=== PATIENT | female | born 1940 | race Caucasian/White ===

== ENCOUNTER 2016-05-03 13:14 | Observation (INO) | payer MEDICARE ==
[2016-05-03] MEDS ORDERED: Sodium Chloride 0.9% 1000 ML 1,000 ML IV SCH ×2 (13:30→16:21)
[2016-05-03] MEDS ORDERED: Sodium Chloride 0.9% 1000 ML 1,000 ML ONE (13:31)
[2016-05-03 13:53] LABS: BASOPHIL % 0.1 % (0.0-0.4); Eosinophil % 0.5 % (0.00-5.0); Granulocytes % 79.4 % (36.0-66.0); Lymphocytes % 9.6 % (24.0-44.0); Mean Cell Volume 95.7 fl (78-100); Mean Corpuscular Hemoglobin 31.9 pg (26-32); Mean Platelet Volume 11.4 fl (6-9.5); Monocytes % 10.4 % (0.0-12.0); Platelet Count 285 K/mm3 (150-450); Red Blood Count 3.76 M/mm3 (4.1-5.4); Red Cell Distribution Width 13.2 % (11.5-14.0); White Blood Count 9.2 K/mm3 (4.0-10.5)
[2016-05-03 14:06] LABS: ALBUMIN 3.4 g/dL (3.4-5.0); ANION GAP 15.7 MEQ/L (5-15); BILIRUBIN,TOTAL 0.4 mg/dL (0.2-1.0); Carbon Dioxide 22.3 mEq/L (21-32); Potassium 4.8 mEq/L (3.5-5.1); Total Protein 7.4 gm/dL (6.4-8.2)
--- NOTE | 2016-05-03 14:06 | ERPHSYRPT ---
- History of Present Illness Time Seen by Provider: 05/03/16 13:18 Source: patient, family (daughter) Patient Subjective Stated Complaint: SYNCOPAL EPISODE TODAY Triage Nursing Assessment: STATES GOT HOT AT HOME AND STARTED TO GO TO THE BATHROOM AND 'WOKE UP ON THE FLOOR'. PT STATES SHE IS ON LEVAQUIN FOR A DX OF BRONCHITIS. UP FROM 250MG OF LEVAQUIJN TO 500MG. SKIN WARM AND DRY. DENIES INJURY FROM FALL. PUPILS ALEENA. ELECTRICAL PRODUCTS ENGINEER EQUAL. DENIES SYNCOPAL SYMPTOMS AT THIS TIME. HAD NOT ATE BREAKAST PRIOR TO SYNCOPAL EPISODE BUT HAS ATE BREAKFAST SINCE. RT INDEX FINGER SWOLLEN AND WARM TO TOUCH--PT STATES SHE HAS GOUT AND HAS RECENT FLARE-UP. Physician History: CC: passed out Hx: 76 y/o patient of Dr Yuniel Schneider and Dr Yair Cohen (cardiology [facility]). She has been sick for the past two weeks with cough, sinus drng. Initially some fever. Started levaquin 250 QOD Thursday and increased to 500mg daily . She continues to have some cough. Also using an inhaler. She has not been eating or drinking much. This AM she felt hungry. She went to go to [place]. She felt warm and clammy. While sitting on toilet she must have passed out as she awoke on the floor. No apparent injury. No VALADEZ, neck pain, back pain, or extremity injury. No chest pain , palpitations, V/D, abd pain. No N/T/W. She feels fine now. She has had hx of gout. She has right index finger swelling and redness and some pain. She reports prior abnl EKG in the past but unsure what abnormality. ILL: Gout, prior kidney transplant 8 years ago [facility], HTN Surg: Back surgery Social: Nonsmoker Timing/Duration: today Allergies/Adverse Reactions: No Known Drug Allergies Allergy (Unverified 05/03/16 13:32) Home Medications: Allopurinol 100 mg [Zyloprim 100 mg] 200 mg PO BID 05/03/16 [History] Amlodipine Besylate 5 mg [Norvasc 5 mg] 5 mg PO DAILY 05/03/16 [History] Aspirin 81 mg PO DAILY 05/03/16 [History] Atorvastatin Calcium [Lipitor] 80 mg PO HS 05/03/16 [History] Benzonatate 200 mg PO TID 05/03/16 [History] Ferrous Sulfate [Iron] 325 mg PO DAILY 05/03/16 [History] Hydrochlorothiazide 25 mg [hydroDIURIL 25 MG] 25 mg PO DAILY 05/03/16 [ History] Lisinopril 80 mg PO DAILY 05/03/16 [History] Metoprolol Succinate 50 mg [Toprol Xl 50 MG] 150 mg PO BID 05/03/16 [ History] Mycophenolate Mofetil 250 mg PO BID 05/03/16 [History] Omeprazole 20 MG [Prilosec 20 mg] 20 mg PO DAILY 05/03/16 [History] Tacrolimus [Prograf] 0.5 mg PO BID 05/03/16 [History] Valacyclovir HCl [Valacyclovir] 500 mg PO DAILY 05/03/16 [History] Hx Tetanus, Diphtheria Vaccination/Date Given: Yes Hx Influenza Vaccination/Date Given: No Hx Pneumococcal Vaccination/Date Given: Yes Immunizations Up to Date: Yes - Review of Systems Constitutional: Fatigue, Malaise, Weakness, No Fever, No Chills Eyes: No Symptoms, No Vision Changes Ears, Nose, & Throat: No Symptoms Respiratory: Cough, No Dyspnea Cardiac: Syncope, No Chest Pain, No Palpitations Abdominal/Gastrointestinal: No Abdominal Pain, No Nausea, No Vomiting, No Diarrhea Genitourinary Symptoms: No Dysuria Musculoskeletal: Fall, No Back Pain, No Neck Pain Skin: No Rash Neurological: No Dizziness, No Focal Weakness, No Headache, No Parasthesia, No Seizure All Other Systems: Reviewed and Negative - Past Medical History Pertinent Past Medical History: Yes Cardiac History: Hypertension Respiratory History: Other Other Medical History: ABNORMAL EKG BUT UNSURE OF DX - Past Surgical History Past Surgical History: Yes Female Surgical History: Hysterectomy Other Surgical History: BACK SURGERY. SQUAMOUS CELL REMOVAL. KIDNEY TRANPLANT - Social History Smoking Status: Never smoker Exposure to second hand smoke: No Drug Use: none Patient Lives Alone: No - Nursing Vital Signs Nursing Vital Signs: Initial Vital Signs Temperature 97.4 F Temperature Source Oral Pulse Rate 78 Respiratory Rate 18 Blood Pressure [] 113/67 Pain Intensity 0 - Physical Exam General Appearance: alert Eye Exam: PERRL/EOMI Ears, Nose, Throat Exam: normal ENT inspection, moist mucous membranes Neck Exam: normal inspection, non-tender, supple Respiratory Exam: normal breath sounds, lungs clear, No respiratory distress Cardiovascular Exam: regular rate/rhythm, No murmur Gastrointestinal/Abdomen Exam: soft, No tenderness, No distention, No mass, No guarding Back Exam: normal inspection, No vertebral tenderness Extremity Exam: normal inspection, normal range of motion, other (some redness swelling and tenderness right index finger) Neurologic Exam: alert, oriented x 3, cooperative, sensation nml, No motor deficits Skin Exam: warm, dry, No rash SpO2 Interpretation: normal SpO2: 96 Oxygen Delivery: Room Air - Course Nursing assessment & vital signs reviewed: Yes EKG Interpreted by Me: RATE (72), Sinus Rhythm, NORMAL AXIS, NORMAL INTERVALS ( QTc 435), 1st degree AV Block, Q-wave (septal), Non-specific ST Changes - Radiology Exams right hand X-ray Interpretation: Reviewed by me (swelling index finger) cxr X-ray Interpretation: Reviewed by me (RLL pneumonia) Ordered Tests: Active Orders 24 hr Category Date Time Status Senior Auditor STAT Care 05/03/16 13:20 Active Cath for Specimen-Straight STAT Care 05/03/16 13:19 Active EKG-ER Only STAT Care 05/03/16 13:19 Active IV Insertion STAT Care 05/03/16 13:19 Active CHEST 1 VIEW (PORTABLE) Stat Exams 05/03/16 13:19 Taken HAND (MINIMUM 3 VIEWS) Stat Exams 05/03/16 13:39 Taken BLOOD CULTURE Stat Lab 05/03/16 13:40 Received CBC W DIFF Stat Lab 05/03/16 13:35 Completed CMP Stat Lab 05/03/16 13:35 Completed CULTURE,URINE Stat Lab 05/03/16 14:15 Received Lactic Acid Urgent Lab 05/03/16 13:19 Completed MAGNESIUM Stat Lab 05/03/16 13:35 Completed TROPONIN Stat Lab 05/03/16 13:35 Completed UA Stat Lab 05/03/16 14:15 Completed Uric Acid Stat Lab 05/03/16 13:35 Completed Medication Summary Generic Name Dose Route Start Last Admin Trade Name Freq PRN Reason Stop Dose Admin Sodium Chloride 1,000 mls @ 100 mls/hr 05/03/16 13:30 05/03/16 13:34 Sodium Chloride 0.9% 1000 Ml IV 06/02/16 13:29 100 mls/hr .Q10H IVONE Administration Discontinued Medications Generic Name Dose Route Start Last Admin Trade Name Hetal PRN Reason Stop Dose Admin Sodium Chloride Confirm 05/03/16 13:31 Sodium Chloride 0.9% 1000 Ml Administered 05/03/16 13:32 Dose 1,000 mls @ ud .ROUTE .STK-MED ONE Lab/Rad Data: Laboratory Result Diagrams 05/03/16 13:35 05/03/16 13:35 Laboratory Results 05/03/16 05/03/16 05/03/16 Range/Units 14:15 13:35 13:35 WBC (4.0-10.5) K/mm3 RBC (4.1-5.4) M/mm3 Hgb (12.0-16.0) gm/dl Hct (35-47) % MCV (78-100) fl MCH (26-32) pg MCHC (32-36) g/dl RDW (11.5-14.0) % Plt Count (150-450) K/mm3 MPV (6-9.5) fl Gran % (36.0-66.0) % Lymphocytes % (24.0-44.0) % Monocytes % (0.0-12.0) % Eosinophils % (0.00-5.0) % Basophils % (0.0-0.4) % Basophils # (0-0.4) Sodium 128 L (136-145) mEq/L Potassium 4.8 (3.5-5.1) mEq/L Chloride 95 L (98-107) mEq/L Carbon Dioxide 22.3 (21-32) mEq/L Anion Gap 15.7 H (5-15) MEQ/L BUN 34 H (9-20) mg/dL Creatinine 1.62 H (0.55-1.30) mg/dl Estimated GFR 33 ML/MIN Glucose 142 H (70-110) MG/DL Lactic Acid (0.4-2.0) Uric Acid 3.5 (2.6-6.0) mg/dL Calcium 9.9 (8.5-10.1) mg/dL Magnesium 1.2 L (1.8-2.4) mg/dL Total Bilirubin 0.4 (0.2-1.0) mg/dL AST 22 (15-37) U/L ALT 11 L (12-78) U/L Alkaline Phosphatase 132 H (46-116) U/L Troponin I < 0.017 (0.000-0.056) ng/ml Serum Total Protein 7.4 (6.4-8.2) gm/dL Albumin 3.4 (3.4-5.0) g/dL Ur Collection Type VOID Urine Color YELLOW (YELLOW) Urine Appearance CLEAR (CLEAR) Urine pH 5.0 (5-6) Ur Specific Sylvester 1.010 (1.005-1.025) Urine Protein NEGATIVE (Negative) Urine Glucose (UA) NEGATIVE (NEGATIVE) mg/dL Urine Ketones NEGATIVE (NEGATIVE) Urine Nitrite NEGATIVE (NEGATIVE) Urine Bilirubin NEGATIVE (NEGATIVE) Urine Urobilinogen 0.2 (0-1) mg/dL Urine WBC (Auto) NEGATIVE (NEGATIVE) Urine RBC (Auto) NEGATIVE (0-5) Stephen/ul Specimen Received 05/03/16 1415 05/03/16 05/03/16 Range/Units 13:35 13:19 WBC 9.2 (4.0-10.5) K/mm3 RBC 3.76 L (4.1-5.4) M/mm3 Hgb 12.0 (12.0-16.0) gm/dl Hct 36.0 (35-47) % MCV 95.7 (78-100) fl MCH 31.9 (26-32) pg MCHC 33.3 (32-36) g/dl RDW 13.2 (11.5-14.0) % Plt Count 285 (150-450) K/mm3 MPV 11.4 H (6-9.5) fl Gran % 79.4 H (36.0-66.0) % Lymphocytes % 9.6 L (24.0-44.0) % Monocytes % 10.4 (0.0-12.0) % Eosinophils % 0.5 (0.00-5.0) % Basophils % 0.1 (0.0-0.4) % Basophils # 0.01 (0-0.4) Sodium (136-145) mEq/L Potassium (3.5-5.1) mEq/L Chloride (98-107) mEq/L Carbon Dioxide (21-32) mEq/L Anion Gap (5-15) MEQ/L BUN (9-20) mg/dL Creatinine (0.55-1.30) mg/dl Estimated GFR ML/MIN Glucose (70-110) MG/DL Lactic Acid 1.0 (0.4-2.0) Uric Acid (2.6-6.0) mg/dL Calcium (8.5-10.1) mg/dL Magnesium (1.8-2.4) mg/dL Total Bilirubin (0.2-1.0) mg/dL AST (15-37) U/L ALT (12-78) U/L Alkaline Phosphatase (46-116) U/L Troponin I (0.000-0.056) ng/ml Serum Total Protein (6.4-8.2) gm/dL Albumin (3.4-5.0) g/dL Ur Collection Type Urine Color (YELLOW) Urine Appearance (CLEAR) Urine pH (5-6) Ur Specific Sylvester (1.005-1.025) Urine Protein (Negative) Urine Glucose (UA) (NEGATIVE) mg/dL Urine Ketones (NEGATIVE) Urine Nitrite (NEGATIVE) Urine Bilirubin (NEGATIVE) Urine Urobilinogen (0-1) mg/dL Urine WBC (Auto) (NEGATIVE) Urine RBC (Auto) (0-5) Stephen/ul Specimen Received - Progress Progress Note: 05/03/16 15:31 The patient has elevated creat which usually is less than 1. She has some RLL infiltrates. Called Dr Rae ([phone]) thru one call and also spoke to hospitalist. They advise transfer to [facility] but no beds available possibly until tomorrow. They advised Vancomycin 1 gram IV, IV bolus then 75 ml/hr, continue levaquin, serial troponin, tele, hold prgraf, and continue cellcept. Since no beds at [facility] spoke to Dr Boggs (oc) and will place in tele obs here until [facility] bed available. Discussed with : Ambrose Will see patient in: hospital (observation) Counseled pt/family regarding: lab results, diagnosis, need for follow-up, rad results - Departure Time of Disposition: 15:34 Departure Disposition: Observation Clinical Impression: Syncope, Hx of kidney transplant, Azotemia, Hyponatremia, Abnormal EKG Condition: Fair Critical Care Time: No
[2016-05-03 14:11] LABS: MAGNESIUM 1.2 mg/dL (1.8-2.4)
[2016-05-03 14:13] LABS: TROPONIN < 0.017 ng/ml (0.000-0.056)
[2016-05-03 14:20] LABS: COMPLETE URINE MICROSCOPIC? NO; Collection Type VOID
[2016-05-03] MEDS ORDERED: Vancomycin 1GM/ Ns 250ML*** 250 ML IV ONE ×2 (15:30→15:49)
[2016-05-03] MEDS ORDERED: TYLENOL 325 MG PO PRN (16:21)
[2016-05-03] MEDS ORDERED: PROVENTIL 2.5 MG/3 ML NEB IH PRN (16:21)
[2016-05-03 20:11] VITALS: BP 145/62
[2016-05-03 20:21] VITALS: PULSE 85; O2SAT 95
[2016-05-03] MEDS ORDERED: Lopressor 50 MG ONE (21:37)
[2016-05-03] MEDS ORDERED: ZYLOPRIM 100 MG ONE (21:38)
[2016-05-03] MEDS ORDERED: ZOCOR 20MG ONE (21:38)
[2016-05-03] MEDS ORDERED: Tessalon Perles 100 MG PO ONE (21:38)
--- NOTE | 2016-05-03 21:57 | XRAY ---
Indication: Syncope. Comparison: None Portable chest demonstrates subtle right infrahilar infiltrate/atelectasis and bilateral calcified granulomas. Remaining heart, lungs, and bony thorax unremarkable.
--- NOTE | 2016-05-03 21:58 | XRAY ---
Indication: Second digit swelling. Comparison: None 3 views of the right hand demonstrates minimal/mild degenerative changes of all the IP joints, mild second finger soft tissue swelling, and distal forearm vascular calcifications. No other bony, articular, or soft tissue abnormalities.
[2016-05-03] MEDS ORDERED: Lopressor 50 MG PO SCH (22:00)
[2016-05-03] MEDS ORDERED: ZOCOR 20MG PO SCH (22:00)
[2016-05-03] MEDS ORDERED: Tessalon Perles 100 MG PO SCH (22:00)
[2016-05-03] MEDS ORDERED: ZYLOPRIM 100 MG PO SCH (22:00)
[2016-05-03] MEDS ORDERED: PROVENTIL COMMON CANISTER IH SCH (22:00)
[2016-05-03] MEDS ORDERED: NON-FORMULARY ITEM PO SCH (22:00)
--- NOTE | 2016-05-06 12:43 | SSS ---
DISCHARGE DIAGNOSES: 1) RIGHT LOWER LOBE PNEUMONIA. 2) SYNCOPE. 3) HISTORY OF KIDNEY TRANSPLANT WITH ACUTE RENAL FAILURE. HOSPITAL COURSE: This patient was admitted from the emergency department late in the afternoon on 05/03/2016. The emergency room doctor had contacted and they had requested that she be transferred there. However, they did not have any beds available at at that time. A bed became available in the early evening at and so she was transferred there by ACLS to see her specialist, her stock hanger that he spoke with was Dr. Rae. She had some syncope at home and was found to have a right lower lobe infiltrate. She had been on Levaquin at home. She had already taken that the day she was seen and the doctor at had recommended that Dr. Moody give her Vancomycin 1 gm IV which he did but also advised to hold her Prograf and continue CellCept which we did. They advised telemetry with serial troponins which was done while she was here. They also advised that she get fluids at 75 ml/hour and be transferred to as soon as a bed was available so she was transferred for specialty care given her history of renal transplant with acute renal failure. The patient was transferred on 05/03/2016. She was transferred before I saw her. Again, she was seen by the emergency room doctor here and he had wanted her to transfer directly from the emergency room but again this was not possible because at that time at they had no beds available. DISPOSITION: Transfer to [facility] for specialty care with her freezer tunnel operator and stock hanger given her complicated past medical history with the renal transplant.
== END 2016-05-03 22:55 ==
LOC: ED 13:14 → MED SURG 16:06
PROVIDERS: ADMIT Internal Medicine; ATTEND Internal Medicine
DX: J18.9 Pneumonia, unspecified organism (principal); R55 Syncope and collapse; Z94.0 Kidney transplant status; N17.9 Acute kidney failure, unspecified; E87.1 Hypo-osmolality and hyponatremia; I10 Essential (primary) hypertension; Z79.899 Other long term (current) drug therapy
CPT/HCPCS: 36000; 36415; 71010; 73130; 80053; 81002; 83605; 83735; 84484; 84550; 85025; 87040; 87086; 93005; 93041; 93268; 94640; 94760; 96360; 96361; 96365; 96366; 99285; G0378; J3370; P9612

== ENCOUNTER 2016-07-13 19:38 | Emergency (ER) | payer MEDICARE ==
--- NOTE | 2016-07-13 20:10 | ERPHSYRPT ---
- History of Present Illness Time Seen by Provider: 07/13/16 20:03 Source: patient, family Exam Limitations: no limitations Physician History: This is a 76-year-old white female with history of high blood pressure who has a abnormal EKG in the past of unknown type who has had a kidney transplant in 2007. She states she had been on vacation she came home she states that she was could not remember any other coats for her cars or her house. Her states that she had problems getting her words out. She did not have any problems moving speaking. She is now speaking normally and is able to move and has no obvious deficits. Past medical history includes high blood pressure, abnormal EKG, kidney transplant. 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 because of glomerulonephritis Social history patient denies tobacco use she states she occasionally uses alcohol but none today she denies illicit drug use Timing/Duration: today (1 hour ago) Severity: mild Modifying Factors: Improves With: nothing Associated Symptoms: No nausea, No vomiting, No abdominal pain Allergies/Adverse Reactions: lymphocyte immune globulin,rabbit [From Thymoglobulin] Allergy (Verified 17:13) Home Medications: Albuterol Sulfate [Proair Hfa] 2 puff IH QID 05/03/16 [History] Allopurinol 100 mg [Zyloprim 100 mg] 200 mg PO BID 05/03/16 [History] Aspirin 81 mg PO DAILY 05/03/16 [History] Atorvastatin Calcium [Lipitor] 80 mg PO HS 05/03/16 [History] Ferrous Sulfate [Iron] 325 mg PO DAILY 05/03/16 [History] Lisinopril 80 mg PO DAILY 05/03/16 [History] Metoprolol Tartrate [Lopressor] 150 mg PO BID 05/03/16 [History] Mycophenolate Mofetil 250 mg PO BID 05/03/16 [History] Omeprazole 20 MG [Prilosec 20 mg] 20 mg PO DAILY 05/03/16 [History] Tacrolimus [Prograf] 0.5 mg PO BID 05/03/16 [History] Valacyclovir HCl [Valacyclovir] 500 mg PO DAILY 05/03/16 [History] Hx Tetanus, Diphtheria Vaccination/Date Given: Yes Hx Influenza Vaccination/Date Given: No Hx Pneumococcal Vaccination/Date Given: Yes - Review of Systems Constitutional: No Fever, No Chills Eyes: No Symptoms, No Discharge, No Eye Pain, No Eye Redness, No Itchy, No Photophobia, No Tearing, No Vision Changes, No Double Vision, No Foreign Body Sensation Ears, Nose, & Throat: No Symptoms, No Ear Pain, No Ear Discharge, No Hearing Changes, No Tinnitus, No Nose Pain, No Nose Congestion, No Nose Discharge, No Sinus Drainage, No Epistaxis, No Mouth Pain, No Mouth Swelling, No Loose Teeth, No Throat Pain, No Throat Swelling, No Hoarse, No Painful Swallowing, No Snoring , No Stridor Respiratory: No Cough, No Dyspnea Cardiac: No Chest Pain, No Edema, No Syncope Abdominal/Gastrointestinal: No Abdominal Pain, No Nausea, No Vomiting, No Diarrhea Genitourinary Symptoms: No Dysuria Musculoskeletal: No Back Pain, No Neck Pain Skin: No Rash Neurological: Speech Changes, Other (patient with a brief period of unable to remember the codes for her car and house, also old trouble getting her words out for several minutes one hour prior to arrival), No Dizziness, No Focal Weakness, No Gait Changes, No Headache, No Irritability, No Lethargy, No Paralysis, No Parasthesia, No Seizure, No Sensory Changes, No Tics, No Tremors, No Vertigo Psychological: No Symptoms Endocrine: No Symptoms All Other Systems: Reviewed and Negative - Past Medical History Pertinent Past Medical History: Yes Neurological History: No Pertinent History ENT History: Cataracts Cardiac History: High Cholesterol, Hypertension, Other Respiratory History: Other Endocrine Medical History: No Pertinent History Musculoskeletal History: Arthritis, Other GI Medical History: GERD History: Other Psycho-Social History: No Pertinent History Female Reproductive Disorders: Abnormal Uterine Bleeding Other Medical History: ABNORMAL EKG BUT UNSURE OF DX, gout - Past Surgical History Past Surgical History: Yes Neuro Surgical History: No Pertinent History Cardiac: No Pertinent History Respiratory: No Pertinent History Gastrointestinal: No Pertinent History Genitourinary: Kidney Transplant Musculoskeletal: Orthopedic Surgery Female Surgical History: Hysterectomy Other Surgical History: BACK SURGERY. SQUAMOUS CELL REMOVAL (2) - Social History Smoking Status: Former smoker Exposure to second hand smoke: No Drug Use: none Patient Lives Alone: No - Nursing Vital Signs Nursing Vital Signs: Initial Vital Signs Temperature 98.3 F Temperature Source Oral Pulse Rate 80 Respiratory Rate 18 Blood Pressure [] 198/90 Pain Intensity 0 - Physical Exam General Appearance: no apparent distress, alert Eye Exam: PERRL/EOMI, eyes nml inspection Ears, Nose, Throat Exam: normal ENT inspection, TMs normal, pharynx normal, moist mucous membranes Neck Exam: normal inspection, non-tender, supple, full range of motion Respiratory Exam: normal breath sounds, lungs clear, No respiratory distress Cardiovascular Exam: regular rate/rhythm, normal heart sounds, normal peripheral pulses Gastrointestinal/Abdomen Exam: soft, normal bowel sounds, No tenderness, No mass Back Exam: normal inspection, normal range of motion, No CVA tenderness, No vertebral tenderness Extremity Exam: normal inspection, normal range of motion, pelvis stable Neurologic Exam: alert, oriented x 3, cooperative, normal mood/affect, nml cerebellar function, nml station & gait, sensation nml, other (patient alert, oriented 3, speech is normal, no facial droop, full range of motion to all extremities, finger to nose within normal limits bilaterally, no pronator drift , e commerce architect equal and symmetrical 5 over5, no tongue deviation, GCS is 15, DTRs 2 over 4, sensation intact to all extremities), No motor deficits Skin Exam: normal color, warm, dry, No rash SpO2 Interpretation: normal (98%) SpO2: 98 Oxygen Delivery: Room Air - Course Nursing assessment & vital signs reviewed: Yes EKG Interpreted by Me: RATE (79 bpm), Sinus Rhythm, Left Og[place]by Deviation, Other ( EKG sinus rhythm 72 beats per minute left axis deviation no acute ST or T wave changes a May 03, 2016) - Radiology Exams Chest X-ray Interpretation: Interpreted by me, Negative, No Pneumothorax - CT Exams Head CT Interpretation: Discussed w/radiologist (petechial hyperdensities in left basilar ganglia 12 mm focus pethecial bleed) Ordered Tests: Active Orders 24 hr Category Date Time Status Accucheck STAT Care 07/13/16 20:03 Active Sliver Lap Machine Tender STAT Care 07/13/16 20:03 Active EKG-ER Only STAT Care 07/13/16 20:03 Active IV Insertion STAT Care 07/13/16 20:03 Active CHEST 1 VIEW (PORTABLE) Stat Exams 07/13/16 20:04 Taken HEAD WITHOUT CONTRAST [CT] Stat Exams 07/13/16 20:03 Taken CBC W DIFF Stat Lab 07/13/16 20:12 Completed CMP Stat Lab 07/13/16 20:12 Completed PROTIME WITH INR Stat Lab 07/13/16 20:12 Completed PTT Stat Lab 07/13/16 20:12 Completed TROPONIN Stat Lab 07/13/16 20:12 Completed UA W/ MICROSCOPIC Stat Lab 07/13/16 20:13 Completed Medication Summary Discontinued Medications Generic Name Dose Route Start Last Admin Trade Name Louisq PRN Reason Stop Dose Admin Labetalol HCl 10 mg 07/13/16 21:40 Trandate 20 Mg/5 Ml Syringe IV 07/13/16 21:41 STAT ONE Lab/Rad Data: Laboratory Result Diagrams 07/13/16 20:12 07/13/16 20:12 Laboratory Results 07/13/16 07/13/16 07/13/16 Range/Units 20:13 20:12 20:12 WBC (4.0-10.5) K/mm3 RBC (4.1-5.4) M/mm3 Hgb (12.0-16.0) gm/dl Hct (35-47) % MCV (78-100) fl MCH (26-32) pg MCHC (32-36) g/dl RDW (11.5-14.0) % Plt Count (150-450) K/mm3 MPV (6-9.5) fl Gran % (36.0-66.0) % Lymphocytes % (24.0-44.0) % Monocytes % (0.0-12.0) % Eosinophils % (0.00-5.0) % Basophils % (0.0-0.4) % Basophils # (0-0.4) INR 0.89 (0.8-3.0) APTT 28.2 (25.3-37.0) SECONDS Sodium (136-145) mEq/L Potassium (3.5-5.1) mEq/L Chloride (98-107) mEq/L Carbon Dioxide (21-32) mEq/L Anion Gap (5-15) MEQ/L BUN (9-20) mg/dL Creatinine (0.55-1.30) mg/dl Estimated GFR ML/MIN Glucose (70-110) MG/DL Calcium (8.5-10.1) mg/dL Total Bilirubin (0.2-1.0) mg/dL AST (15-37) U/L ALT (12-78) U/L Alkaline Phosphatase (46-116) U/L Troponin I < 0.017 (0.000-0.056) ng/ml Serum Total Protein (6.4-8.2) gm/dL Albumin (3.4-5.0) g/dL Ur Collection Type CLEAN CATCH Urine Color YELLOW (YELLOW) Urine Appearance CLEAR (CLEAR) Urine pH 6.0 (5-6) Ur Specific [place] 1.010 (1.005-1.025) Urine Protein TRACE (Negative) Urine Glucose (UA) 100 (NEGATIVE) mg/dL Urine Ketones NEGATIVE (NEGATIVE) Urine Nitrite NEGATIVE (NEGATIVE) Urine Bilirubin NEGATIVE (NEGATIVE) Urine Urobilinogen 0.2 (0-1) mg/dL Urine WBC (Auto) NEGATIVE (NEGATIVE) Urine RBC (Auto) NEGATIVE (0-5) Stephen/ul Urine Microscopic RBC 0-2 (0-2) /HPF Urine Microscopic WBC 0-2 (0-5) /HPF Ur Epithelial Cells FEW (FEW) /HPF Urine Bacteria FEW (NEGATIVE) /HPF Specimen Received 07/13/16199907/13/16 07/13/16 Range/Units 20:12 20:12 WBC 6.7 (4.0-10.5) K/mm3 RBC 3.39 L (4.1-5.4) M/mm3 Hgb 10.8 L (12.0-16.0) gm/dl Hct 33.4 L (35-47) % MCV 98.5 (78-100) fl MCH 31.8 (26-32) pg MCHC 32.3 (32-36) g/dl RDW 14.6 H (11.5-14.0) % Plt Count 212 (150-450) K/mm3 MPV 11.9 H (6-9.5) fl Gran % 67.7 H (36.0-66.0) % Lymphocytes % 19.5 L (24.0-44.0) % Monocytes % 9.0 (0.0-12.0) % Eosinophils % 3.0 (0.00-5.0) % Basophils % 0.8 (0.0-0.4) % Basophils # 0.05 (0-0.4) INR (0.8-3.0) APTT (25.3-37.0) SECONDS Sodium 130 L (136-145) mEq/L Potassium 4.3 (3.5-5.1) mEq/L Chloride 99 (98-107) mEq/L Carbon Dioxide 25.1 (21-32) mEq/L Anion Gap 10.5 (5-15) MEQ/L BUN 35 H (9-20) mg/dL Creatinine 1.29 (0.55-1.30) mg/dl Estimated GFR 43 ML/MIN Glucose 203 H (70-110) MG/DL Calcium 10.3 H (8.5-10.1) mg/dL Total Bilirubin 0.3 (0.2-1.0) mg/dL AST 10 L (15-37) U/L ALT 13 (12-78) U/L Alkaline Phosphatase 136 H (46-116) U/L Troponin I (0.000-0.056) ng/ml Serum Total Protein 7.1 (6.4-8.2) gm/dL Albumin 3.8 (3.4-5.0) g/dL Ur Collection Type Urine Color (YELLOW) Urine Appearance (CLEAR) Urine pH (5-6) Ur Specific [place] (1.005-1.025) Urine Protein (Negative) Urine Glucose (UA) (NEGATIVE) mg/dL Urine Ketones (NEGATIVE) Urine Nitrite (NEGATIVE) Urine Bilirubin (NEGATIVE) Urine Urobilinogen (0-1) mg/dL Urine WBC (Auto) (NEGATIVE) Urine RBC (Auto) (0-5) Stephen/ul Urine Microscopic RBC (0-2) /HPF Urine Microscopic WBC (0-5) /HPF Ur Epithelial Cells (FEW) /HPF Urine Bacteria (NEGATIVE) /HPF Specimen Received - Progress Progress: improved Progress Note: 07/13/16 21:07 Notified by radiology that patient has a possible 12 mm focus of petechial bleeding left basal ganglia. I've contacted [facility] one call. Initially discussed this with the neurosurgeon she recommended that I discussed this with neurology and ICU. Patient's blood pressure is improving however still somewhat elevated at 198/90 initial was 205/104. Considering antihypertensives patient with no focal deficits at this time. 07/13/16 21:17 I discussed the patient's case with the neurologist at [facility] He states that he reviewed the patient's charts and it appears that the patient' s CT findings are old. He also states that there would not be a bed available for perhaps a day and a half patient states that she would be willing to stay here Will discuss case with Dr. Shay Tracey who is front desk administrator for hospitalist 07/13/16 21:55 I've discussed the case with Dr. Shay Tracey he is not comfortable with keeping the patient here because of potential intracranial bleed I've discussed the case with Jc Gustafson front desk administrator at [facility]. Also discussed the case with Dr. Alicea neurologist. Patient will be transferred to [facility]. Patient will be given labetalol 10 mg IV her blood pressure is improving. We will hang a normal saline 50 mL per hour.. Will transfer patient to [facility]. Diagnosis. Intercranial bleed. - Departure Time of Disposition: 21:56 Departure Disposition: Transfer ([facility] jc gustafson for Dr Groves) Clinical Impression: Intracranial bleed, Hypertension Condition: Fair Critical Care Time: No
[2016-07-13 20:17] LABS: BASOPHIL % 0.8 % (0.0-0.4); Granulocytes % 67.7 % (36.0-66.0); Lymphocytes % 19.5 % (24.0-44.0); Mean Cell Volume 98.5 fl (78-100); Mean Platelet Volume 11.9 fl (6-9.5); Platelet Count 212 K/mm3 (150-450); Red Blood Count 3.39 M/mm3 (4.1-5.4); Red Cell Distribution Width 14.6 % (11.5-14.0); White Blood Count 6.7 K/mm3 (4.0-10.5)
[2016-07-13 20:20] LABS: Mean Corpuscular Hemoglobin 31.8 pg (26-32)
[2016-07-13 20:32] LABS: Bacteria FEW /HPF (NEGATIVE); COMPLETE URINE MICROSCOPIC? YES; Collection Type CLEAN CATCH; Epithelial Cells FEW /HPF (FEW); WBC 0-2 /HPF (0-5)
[2016-07-13 20:35] LABS: INR 0.89 (0.8-3.0)
[2016-07-13 20:38] LABS: PTT 28.2 SECONDS (25.3-37.0)
[2016-07-13 20:42] LABS: ALBUMIN 3.8 g/dL (3.4-5.0); ANION GAP 10.5 MEQ/L (5-15); BILIRUBIN,TOTAL 0.3 mg/dL (0.2-1.0); Carbon Dioxide 25.1 mEq/L (21-32); Potassium 4.3 mEq/L (3.5-5.1); Total Protein 7.1 gm/dL (6.4-8.2)
[2016-07-13 21:09] VITALS: O2SAT 98
[2016-07-13] MEDS ORDERED: TRANDATE 20 MG/5 ML SYRINGE IV ONE (21:40)
[2016-07-13] MEDS ORDERED: TRANDATE 100 MG/20 ML MDV FOR DRIP IV ONE (21:40)
[2016-07-13] MEDS ORDERED: Sodium Chloride 0.9% 1000 ML 1,000 ML ONE (21:55)
[2016-07-13] MEDS ORDERED: Sodium Chloride 0.9% 1000 ML 1,000 ML IV SCH (22:00)
[2016-07-14 06:56] VITALS: BP 169/74; PULSE 81
--- NOTE | 2016-07-14 08:34 | XRAY ---
Indication: Confusion. Comparison: May 03, 2016. Portable chest again demonstrates chronic lung markings and a few calcified granulomas. No focal infiltrate, consolidation, or large effusion. Heart and mediastinal structures are within normal limits for AP portable projection. Bony thorax intact. Impression: Nonacute chest with chronic features.
--- NOTE | 2016-07-14 08:37 | XRAY ---
Indication: Sudden onset memory loss and confusion. Possible stroke. Multiple contiguous axial images obtained through the head without contrast. Comparison: None There is age-appropriate global atrophy and minimal periventricular degenerative micro-ischemia bilaterally. In the left basal ganglia, there is 12 mm ovoid focus of petechial hyperdensities concerning for petechial hemorrhage. No mass effect or midline shifting. Fourth ventricle is midline. No hydrocephalus. Bony calvarium intact. Visualized paranasal sinuses and mastoid air cells are pneumatized and clear. Impression: 1. Left basal ganglia petechial hemorrhage as detailed. 2. Atrophy and degenerative micro-ischemia. Comment: Telephone report was given to Dr. Lincoln in the ER at 2037 hrs. on July 13, 2016.
== END 2016-07-13 22:45 | disposition short-term general hospital (02) ==
LOC: ED 19:38
DX: I62.9 Nontraumatic intracranial hemorrhage, unspecified (principal); I10 Essential (primary) hypertension; Z94.0 Kidney transplant status; Z79.899 Other long term (current) drug therapy; R47.81 Slurred speech
CPT/HCPCS: 36000; 36415; 70450; 71010; 80053; 81000; 82962; 84484; 85025; 85610; 85730; 93005; 93041; 96360; 96374; 99285